=== PATIENT | female | born 2000 | race Caucasian/White ===

== ENCOUNTER 2022-04-26 08:59 | Outpatient (CLI) | payer BC, SELFPAY ==
--- NOTE | 2022-04-26 09:15 | CRLHL7_ITS ---
For Patients: As a result of the Cures Act, medical imaging exams and procedure reports are released immediately into your electronic medical record. You may view this report before your referring provider. If you have questions, please contact your health care provider. INDICATION: First trimester scan, establish dates. COMPARISON: None. TECHNIQUE: Real-time vargas-scale imaging of the pelvis was performed. FINDINGS: Sonographic imaging demonstrates a single living intrauterine gestation. The embryo demonstrates a regular cardiac rate measuring 168 beats per minute. The embryo`s crown-rump length measurement of 4.2 cm corresponds to a gestational age of 11 weeks 1 day with a sonographic due date of 11/14/2022. There is a normal-appearing yolk sac. There are no gross abnormalities noted within the embryo at this early state of development. The gestational sac has a normal appearance. There is no evidence of a perigestational hemorrhage. The amount of fluid within the sac appears appropriate for gestational age. The cervix is closed. The myometrium appears normal. The ovaries are not visualized. There are no suspicious fluid collections noted in the cul-de-sac. IMPRESSION: Normal first trimester OB ultrasound exam. Gestational age calculated at 11 weeks 1 day with a sonographic due date of 11/14/2022. Dictated by Rohith Dutton MD @ 04/26/2022 9:45:46 AM (Electronically Signed)
== END 2022-04-26 09:00 | disposition home or self-care (01) ==
PROVIDERS: Visit Provider Advanced Practice Midwife
DX: Z34.91 Encounter for supervision of normal pregnancy, unspecified, first trimester (principal); Z3A.08 8 weeks gestation of pregnancy
CPT/HCPCS: 76801; 86592; 86703; 86762; 86787; 86803; 86850; 86900; 86901; 87086; 87340

== ENCOUNTER 2022-06-25 13:49 | Outpatient (CLI) | payer BC, SELFPAY ==
--- NOTE | 2022-06-25 14:00 | CRLHL7_ITS ---
For Patients: As a result of the Century Cures Act, medical imaging exams and procedure reports are released immediately into your electronic medical record. You may view this report before your referring provider. If you have questions, please contact your health care provider. INDICATION: Evaluate anatomy. COMPARISON: None. TECHNIQUE: Real time vargas scale imaging of the fetus was performed. FINDINGS: Sonographic imaging demonstrates a single living intrauterine gestation. Fetus demonstrates a regular cardiac rate of 144 beats per minute. Fetus has a vertex orientation and longitudinal lie. The placenta lies anteriorly without evidence of placenta previa. Amniotic fluid volume appears normal. Single deepest vertical pocket: 4.0 cm. The cervix is closed and measures 3.9 cm in length. The composite ultrasound gestational age is calculated at 19 weeks 4 days with an estimated sonographic due date of November 15, 2022. The estimated weight is 298 grams which lies at the 3.92 percentile. The following biometric measurements were obtained: Biparietal diameter: 4.53 cm/19 weeks 5 days 36% Head circumference: 16.42 cm/19 weeks 1 day 10% Abdominal circumference: 14.45 cm/19 weeks 5 days 37% Femur length: 3.02 cm/19 weeks 2 days 21% The HC/AC ratio measures: 1.14 range (1.08-1.26) On anatomic survey, there is a normal appearance of the cerebral ventricles, cisterna magna and cerebellum. The nose, lips, and facial profile appear normal. The cervical, thoracic and lumbar spine are well visualized and appear normal. There is a normal four-chamber heart view and the left and right ventricular outflow tracts appear normal. diaphragm, stomach, kidneys and bladder appear normal. There is a normal three-vessel cord and cord insertion site. The four extremities appear normal. IMPRESSION: Normal OB ultrasound exam with concordance of clinical and sonographic dating. No intrinsic abnormalities noted on anatomic survey. Dictated by Caleb Olmos MD @ 06/25/2022 4:25:20 PM (Electronically Signed)
== END 2022-06-25 13:50 | disposition home or self-care (01) ==
PROVIDERS: Visit Provider Advanced Practice Midwife
DX: Z34.92 Encounter for supervision of normal pregnancy, unspecified, second trimester (principal); Z3A.19 19 weeks gestation of pregnancy
CPT/HCPCS: 76805

== ENCOUNTER 2022-08-21 15:02 | Outpatient (CLI) | payer BC, SELFPAY | END 2022-08-21 15:03 | disposition home or self-care (01) | LOC: NFLDREF 08-24 05:19 | PROVIDERS: Visit Provider Advanced Practice Midwife | DX: Z34.93 Encounter for supervision of normal pregnancy, unspecified, third trimester (principal); Z3A.28 28 weeks gestation of pregnancy | CPT/HCPCS: 86592 ==

== ENCOUNTER 2022-09-19 13:30 | Outpatient (RCR) | payer BC, SELFPAY | END 2022-09-19 14:36 | disposition home or self-care (01) | PROVIDERS: Visit Provider Advanced Practice Midwife | DX: Z34.90 Encounter for supervision of normal pregnancy, unspecified, unspecified trimester (principal); N81.89 Other female genital prolapse; N39.3 Stress incontinence (female) (male); R27.8 Other lack of coordination; M62.00 Separation of muscle (nontraumatic), unspecified site; Z51.89 Encounter for other specified aftercare | CPT/HCPCS: 97110; 97112; 97140; 97161; 97535 ==

== ENCOUNTER 2022-11-19 06:55 | Inpatient (IN) | payer BC, SELFPAY ==
[2022-11-19] VITALS (11 sets, daily range): BP systolic 113–138; BP diastolic 57–90; PULSE 72–149; RESP 17–18; TEMP 36.5–37.1; O2SAT 81–96; BMI 30.8
--- NOTE | 2022-11-19 07:56 | W.PM.LDBA ---
Subjective History of Present Illness Date Seen: 11/19/22 Narrative: Patient is being admitted to Labor and Delivery for IOL at 41.0 weeks. She is a 21 year old at weeks gestation. Her full history and physical was dictated by Prasanna Puga CNM on 10/25/22. Please see this for details. 1. Exercise induced Asthma Uses albuterol as needed, worsens w/ seasonal allergies 2.?Varicella equivocal Recommend vaccine pp OB - Problem Based A/P Additional Plan (1) Post term at 41 weeks gestation: Status: Acute (2) Encounter for induction of labor: Status: Acute Plan ASSESSMENT:? at 41.0 weeks gestation? GBS negative? Uncomplicated ? Postterm IOL? ?? PLAN:? 1. Reviewed risks and benefits of IOL with Pitocin vs Cytotec. Pt prefers Cytotec. Pitocin to follow if needed.? 2. Desires water . Consent signed. Hep C negative.? 3. Candidate for analgesia of choice. Planning unmedicated .? 4. Anticipate ? 5. IV per unit policy. 6. External monitoring per Cytotec policy Delivery/Labor/Induction Plan Plan: induction Induction method: per misoprostol protocol OB Result Labs Blood Type: A (+) positive GBS Status: negative OB Exam Physical Exam Vital signs: Pulse BP Pulse Ox 77 120/72 96 11/19/22 07:16 11/19/22 07:16 11/19/22 07:15 Detailed Labor and Delivery Exam Dilation (cm): 1 Effacement (%): 50 Cervix position: mid Consistency: firm Contraction Frequency: only feeling occasional cramping, denies contractions Tachysystole: No Fetus (Single) Station: -2 Amniotic Membrane Status: intact Heart Rate Baseline: 130 Monitor Accelerations: Present Monitor Decelerations: None [employer] Supervisor Variability: Moderate (6-25)
[2022-11-19] MEDS: miSOPROStoL 25 MCG/0.25 TABLET VAGINAL ×4 (08:37→18:46)
--- NOTE | 2022-11-19 20:54 | PM.OBPNL ---
Subjective Time Seen by Provider: 16:00 Date Seen: 11/19/22 Narrative: Gilma has received 2 doses of vaginal cytotec. She has been able to take a nap and has been doing position changes and labor warm up between resting. She is now feeling more cramping and tightening in her lower abdomen but is easily able to talk through them. She denies leaking fluids but did have some bloody show when wiping. She denies questions or concerns at this time. Plan to continue with cytotec induction followed by IV pitocin. Did not check her cervix at this time as there was not an indication. Objective Vital Signs: Last Vital Signs Temp 98.3 F 11/19/22 19:55 Pulse 76 11/19/22 19:55 Resp 17 11/19/22 18:51 BP 121/71 11/19/22 19:55 Pulse Ox 83 L 11/19/22 08:42 Contractions Monitor mode: External (palpate mild) Contraction Frequency: 2-4 Contraction pattern: Irregular (novi monitor. pt denies feeling cxt as frequently as they are picking up) Contraction intensity: Mild Assessment Assessment: induction ongoing Station: -2 Heart Rate Baseline: 130 Fdc Variability: Moderate (6-25) Monitor Accelerations: Present Monitor Decelerations: None Maternal Status: Ongoing induction. Plan Plan: Continue with cytotec induction followed by pitocin. IV placement not needed at this time but can place if condition changes. Monitoring per unit cytotec policy
[2022-11-19] MEDS: hydrOXYzine pamoate 25 MG CAPSULE 100 MG PO (22:16)
[2022-11-19] MEDS: MORPHINE 10 MG/ML inj IM (22:16)
[2022-11-20] VITALS (14 sets, daily range): BP systolic 105–132; BP diastolic 69–86; PULSE 73–105; RESP 16–18; TEMP 36.7–36.8; O2SAT 95–96
[2022-11-20] MEDS: miSOPROStoL 800 MCG/4 TABLET PR (00:45)
[2022-11-20] MEDS: OXYTOCIN 10 UNIT/ML INJ IM (00:48)
--- NOTE | 2022-11-20 01:14 | W.PM.OBVAGDE ---
OB Procedure Vag Delivery Mother Details Mother Details: The patient is a 21 year-old, 1, now Para 1, admitted on 11/19/22 at 41.1 Days gestation. Gilma received 4 doses of cytotec before keith regularly. The 5th dose was held due to frequency of contractions. She began to feel more uncomfortable with contractions and found found to be 7-8cm shortly after 2300. She was moved into the tub where she continued to labor and did get into the birthing tub when it was ready. She felt an urge to push shortly after my arrival and began spontaneously pushing. She pushed well to delivery. : 1 Para: 1 Weeks Gestation: 41.1 Admission Date: 11/19/22 Additional Details Amniotic Membrane Status: SROM Amniotic Membrane Rupture Date: 11/19/22 Amniotic Membrane Rupture Time: 23:17 Amniotic Membrane Fluid Description: Clear (terminal meconium) Analgesia/Anesthesia Type: None Waterbirth: Yes Pitcoin: Yes ( only) Intrapartal Events: Labor Induction and Precipitous Labor <3 Hrs Labor Onset: 23:17 Complete: 23:55 Pushin:55 Heart: heart tones during second stage were auscultated by doppler ranging from 120-130. Randall increases in the heart rate but no decreases. Delivery Details Delivery Date: 11/20/22 Delivery Time: 00:40 Route of delivery: Infant Gender: Female Viability: Alive; Heart Rate Present Position at Delivery: OA Delivery Details: Delivered over intact perineum via spontaneous vaginal delivery. was placed on maternal abdomen.? Cord was clamped and cut after a 30-60 second delay. No respiratory effort was noted and a slow heart rate was palpated by the umbilical cord. Baby was immediately brought to the warm where she began crying and improved. She was brought back to mom after a few minutes. Nose and mouth were bulb suctioned.? weight pending. 1 Minute Interval Total Score: 4 5 Minute Interval Total Score: 8 Additional Details Shoulder Dystocia: No Placenta Delivery Time: 01:00 Placental Delivery Description: Spontaneous Delivery repair: Vicryl and Chromic Procedure Done: Global Blood Loss: 400 Laceration: Perineal - 3rd Degree (3B laceration, evaluated and repaired by Dr. Forrester) Episiotomy Description: None Blood Loss Measurement Type: QBL Bakri Used: No Sponge/Need Count Correct: Yes Cord Vessel Description: 3 Vessels, Nuchal Cord, Tight and Delivered through Event Summary Status: Mother and infant were stable after delivery. Disposition: floor
--- NOTE | 2022-11-20 02:15 | P.OBCN_ITS ---
OB - CN: HPI Date of Consult Time Seen by Provider: 02:15 Date Seen: 11/20/22 Patient: [facility] Patient Consult date: 11/20/22 Requesting Physician: Jada Calero CNM Primary Care Provider: Not a Local Provider Consult Narrative Narrative: Gilma is a 21 year old s/p spontaneous vaginal delivery complicated by 3rd degree laceration on 11/20/2022. Third degree laceration Perineum inspected and a 3b laceration was noted. The patient was given a dose of 2g of cefoxitin, rectal exam performed to confirm tear and internal anal sphincter identified and intact with 50% avulsion of the external anal sphincter. Operators? gloves changed. Attention was then turned to the anal sphincter. Allis clamps were placed on the disrupted edges, and 2-0 vicryl used to reapproximate the sphincter in an interrupted fashion with two figure of eight stitches. Before these were tied down a rectal exam confirmed no retained sutures in the rectum and good sphincter tone with tightening of the sutures. Additional deep stitches were placed proximal to the sphincter to provide for a more substantial perineal body. The remainder of the tear was repaired as a typical 2nd degree laceration with a running 2-0 chromic stitch. There was no involvement of the anal mucosa. Following the repair, she was counseled on the procedure and precautions for return to care. Strong bowel regimen instructions reviewed. A rectal exam was performed at the beginning and end of repair and was without e/o suture through rectum or sphincter injury. Mom and baby doing well in recovery. History History 1 Elective abortions Para 0 Spontaneous abortions Hx # Term Pregnancies Ectopic pregnancies Hx # Pregnancies Multiple births Number of Living Children 0 Labs Blood type: A (+) positive GBS status: negative OB Labs: Lab Assessment Start: 11/19/22 07:05 Freq: ONCE Status: Complete Protocol: PC.OBGBS Activity Type Activity Date Activity User E-sign Co-sign Detail Recorded Client Recorded Date Recorded By Document 11/19/22 07:05 [facility] [id number] 11/19/22 07:37 [facility] 11/19/22 07:05 Lab Assessment GBS negative Previous with Invasive GBS No Does Patient Meet This Additional No Criteria Is Patient Allergic to Penicillin No Does Patient Have History of Severe No Reaction No Treatment Needed OK Maternal Blood Type A Maternal RH Factor Positive Evaluate Maternal Rubella Immune Status Immune Hepatitis B Surface Antigen Negative Maternal HIV Status Negative Maternal Syphillis (RPR) Status Negative Are Labs Available Yes PFSH PFSH Medical History (Updated 11/19/22 @ 14:55 by Jada Calero CNM) No significant past medical history Surgical History (Updated 04/26/22 @ 11:01 by Luna Puga CNM) History of third molar tooth extraction ?K08.409 - Partial loss of teeth, unspecified cause, unspecified class (ICD- 10) Family History (Updated 04/26/22 @ 11:03 by Luna Puga CNM) Father Alzheimers disease Depression High cholesterol Mother Asthma Depression Brother Asthma Paternal Grandfather Myocardial infarction Paternal Grandmother Diabetes Social History (Updated 10/25/22 @ 15:35 by Luna Puga CNM) Narrative: SOCIAL Education: Undergrad Work: Teaching, 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 Partner: Donald, Works at [employer] Lives with: Donald, Pets: none Abuse: Denies past/present Special Diet: Denies Ok with a blood transfusion: yes Culture or nondenominational beliefs: denies RISK FACTORS Exercise Times/wk: Cardio and weights 5x/week, 3-4x per week Depression/Anxiety: no hx Seat Belt Use: Routinely Smoking: Denies past/present Alcohol/day: Denies while , social drinking prior Caffeine: Coffee/tea 1 cup daily Drug Use: Denies past/present Chicken Pox: vaccinate MRSA: Denies What is your current living situation: I presently have a place to live Problems where you live: no known problems In the past 12 months, utilities in danger of being shut off: no In the past 12 mos, have been you worried that your food would run out before you had money to buy more?: never true In the past 12 mos, the food you bought just didn't last and you didn't have money to buy more?: never true Smoking Status: Never smoker How often does anyone, including family, friends and others, physically hurt you : How often does anyone, including family, friends and others, insult or talk down to you: How often does anyone, including family, friends and others, threaten you with harm: How often does anyone, including family, friends and others, scream or curse at you: Little interest or pleasure in doing things: not at all Feeling down, depressed, or hopeless: several days Meds Home Medications and Allergies Home Medications Medication Instructions Recorded Confirmed Type albuterol sulfate 90 mcg/actuation 2 inh inhalation Q4-6H PRN 04/26/22 11/19/22 History breath activated powder inhaler,sensor cyanocobalamin-liver extract tablet tab PO 04/26/22 11/07/22 History magnesium glycinate 120 mg PO QDAY 04/26/22 11/19/22 History prenat.vits,constantino,agk-rpus-obqpw 1 tab PO QDAY 04/26/22 11/19/22 History fexofenadine 60 mg tablet (Dee Dee 60 mg PO QDAY 09/05/22 11/19/22 History Allergy) Allergies Allergy/AdvReac Type Severity Reaction Status Date / Time minocycline Allergy Mild rash Verified 11/14/22 08:19 Penicillins Allergy Mild Unknown Verified 11/14/22 08:19 OB - H&P: Exam Physical Exam: Vital signs: Temp Pulse Resp BP Pulse Ox 98.3 F 76 17 121/71 83 L 11/19/22 19:55 11/19/22 19:55 11/19/22 18:51 11/19/22 19:55 11/19/22 08:42 OB - CN: A/P Assessment and Plan (1) Post term at 41 weeks gestation: Status: Acute (2) Encounter for induction of labor: Status: Acute
[2022-11-20] MEDS: cefOXitin 2 GM in 0.9 % SODIUM CHLORIDE Mini-bag 100 ML IVPB (02:19)
[2022-11-20] MEDS: LIDOCAINE 1 % PF 30 ML INJECTION (02:20)
[2022-11-20] MEDS: ACETAMINOPHEN 500 MG TABLET 1000 MG PO ×4 (02:42→20:25)
[2022-11-20] MEDS: IBUPROFEN 600 MG TABLET PO ×3 (06:20→18:54)
[2022-11-20] MEDS: DOCUSATE SODIUM 100 MG CAPSULE PO ×2 (08:46→20:25)
[2022-11-21] MEDS: IBUPROFEN 600 MG TABLET PO ×3 (01:18→18:44)
--- NOTE | 2022-11-21 07:37 | PM.OBPNVD1 ---
OB - PN:Subj Subjective Date Seen: 11/21/22 Patient comments OB post-: no complaints, pain well controlled, tolerating diet and flatus present [place] status: and doing well [place] feeding status: exclusively Narrative: Patient is a 21year old, G 1 now P 1? admitted on 11/19/22 at 41 Weeks, 0 Days gestation for postterm IOL.? She had an uncomplicated vaginal delivery.? She delivered a viable female .? She is breast feeding and reports things are well.? the patient has done well.? Her pain is well controlled with current medications.? She has no new complaints.? Vitals have been stable. She has remained afebrile. She is voiding without difficulty. She is passing gas and has not had a bowel movement. She is ambulating and denies any dizziness. OB - PN: Obj Exam Physical Exam: Vital signs: Temp Pulse Resp BP Pulse Ox O2 Del Method 98.0 F 81 16 120/79 95 Room Air 11/20/22 23:36 11/20/22 23:36 11/20/22 23:36 11/20/22 23:36 11/20/22 23:36 11/20/22 23:36 Narrative: GENERAL APPEARANCE:? normal affect, alert, no distress? MOOD:? appropriate? CHEST:? clear to auscultation and percussion? HEART:? regular rate and rhythm? ABDOMEN:? soft, non-tender the uterine fundus is 2 cm Below Umbilicus, Midline and is appropriate for the stage of recovery. ? PERINEUM:? mild edema of the perineum, there is a 3rd degree that is healing well.? EXTREMITIES:? normal and no edema? Patient has no complaints? No active bleeding?? Doing well? She is requesting discharge home.? OB - PN: A/P Vaginal Delivery Assessment and Plan (1) Post term at 41 weeks gestation: Status: Inactive (2) Encounter for induction of labor: Status: Inactive (3) care following vaginal delivery: Status: Acute (4) Lactating mother: Status: Acute Plan day: 1 Plan: routine care
[2022-11-21] MEDS: ACETAMINOPHEN 500 MG TABLET 1000 MG PO ×2 (07:48→20:29)
[2022-11-21 09:13] VITALS: BP 118/78; PULSE 94; RESP 18; TEMP 36.9; O2SAT 97
[2022-11-21] MEDS: DOCUSATE SODIUM 100 MG CAPSULE PO (09:55)
[2022-11-21 16:48] VITALS: BP 134/86; PULSE 90; RESP 18; TEMP 36.9; O2SAT 97
[2022-11-21 20:20] VITALS: BP 118/76; PULSE 90; RESP 16; TEMP 36.8; O2SAT 96
[2022-11-22 04:05] VITALS: BP 123/79; PULSE 86; RESP 16; TEMP 36.6; O2SAT 97
[2022-11-22] MEDS: ACETAMINOPHEN 500 MG TABLET 1000 MG PO ×2 (04:32→11:14)
[2022-11-22 07:25] LABS: Hemoglobin* 8.2 gm/dL (12.0-16.0)
[2022-11-22] MEDS: DOCUSATE SODIUM 100 MG CAPSULE PO (07:26)
[2022-11-22] MEDS: IBUPROFEN 600 MG TABLET PO (07:26)
[2022-11-22 07:28] VITALS: BP 122/79; PULSE 89; RESP 16; TEMP 36.6; O2SAT 97
--- NOTE | 2022-11-22 08:50 | P.DS_ITS ---
DS: Providers Provider Date Seen: 11/22/22 Date of admission: 11/19/22 06:55 Primary care physician: Not a Local Provider Admitting Clinician: Jada Calero CNM Attending Physician on discharge: Luna Puga CNM Date of Discharge: 11/22/22 DS: Diagnosis Discharge Diagnosis (1) care following vaginal delivery: Status: Acute (2) Lactating mother: Status: Acute (3) Third degree laceration of perineum, type 3b: Status: Acute Problem details: Strict bowel regimen. Recommended BID colace, with PRN Senna and/or Miralax for soft stools until 6 weeks. (4) Anemia due to acute blood loss: Status: Acute Problem details: Encourage iron rich foods, avoid iron supplementation at this time due to risk of constipation Exam Narrative: Exam Narrative: GENERAL APPEARANCE:? normal affect, alert, no distress MOOD:? appropriate CHEST:? clear to auscultation HEART:? regular rate and rhythm ABDOMEN:? soft, non-tender the uterine fundus is At Umbilicus, Midline and is appropriate for the stage of recovery. PERINEUM:? mild edema of the perineum, there is a Perineal Laceration,?3b, that is healing well. EXTREMITIES:? normal and no edema Const: Vital Signs, click to edit/add: Vital Signs - 24 hr 11/21/22 09:13 11/21/22 16:48 11/21/22 20:20 Temperature 98.4 F 98.4 F 98.2 F Pulse Rate [Pulse Oximeter] 94 90 90 Respiratory Rate 18 18 16 Blood Pressure [Le ft Arm] 118/78 134/86 118/76 Pulse Oximetry 97 97 96 Oxygen Delivery Me thod Room Air Room Air Room Air 11/22/22 04:05 11/22/22 07:28 Temperature 97.9 F 97.9 F Pulse Rate [Pulse Oximeter] 86 89 Respiratory Rate 16 16 Blood Pressure [Le ft Arm] 123/79 122/79 Pulse Oximetry 97 97 Oxygen Delivery Me thod Room Air Room Air OB - DS: Summary Hospital Course Hospital Course: Gilma is a 21 y.o. G 1 P 1 at 41 1/7 weeks gestation that was admitted to the Center on 11/19/22 for post-dates induction of labor. She had an uncomplicated vaginal delivery. She delivered a viable female . The patient feels well. ?The pain is well controlled with current medications. ?She has no new complaints. ?She is breast feeding and reports things are going well.? the patient has done well.? Vitals have been stable.? She has remained afebrile.? Has a good appetite, is tolerating a general diet. ?She is voiding without difficulty.? She is passing gas and has not had a bowel movement.? She is ambulating and denies any dizziness.? Has small amount of rubra lochia. ?She undecided with her plan for prevention. Peripartum Data delivery method: Vaginal (waterbirth) Laceration description: Perineal - 3rd Degree (3b repaired by Dr. Forrester) complications: none [place] Gender: Female Discharge Plan: Home Status at Discharge Functional status at discharge: independent ambulation Overall status at discharge: patient is progressing back to baseline Time Spent with Patient Time attestation: Total time spent providing and/or coordinating discharge services: Discharge Plan Discharge Disposition: Home, Self-Care Date of Admission: 11/19/22 06:55 Attending Provider on Discharge: Luna Puga Primary Care Provider: Provider,Not a Local Condition: Stable Anticipated Discharge Date/Time: 11/22/22 12:00 Discharge Medications: New acetaminophen 500 mg Tablet 1,000 mg PO Q6H PRNQty: 0 0RF docusate sodium 100 mg Capsule 100 mg PO BID Qty: 180 0RF ibuprofen 600 mg Tablet 600 mg PO Q6H PRNQty: 60 0RF pramoxine 1 % Foam 1 applic topical QID PRNQty: 0 0RF sennosides [senna] 8.6 mg tablet 8.6 mg PO DAILY Qty: 60 0RF Continued prenat.vits,constantino,gxf-brin-vegbx Tablet 1 tab PO QDAY cyanocobalamin-liver extract Tablet 1 tab PO DAILY magnesium glycinate 100 mg magnesium capsule 120 mg PO QDAY albuterol sulfate 90 mcg/actuation aero powdr breath act w/sensor 2 inh inhalation Q4-6H PRN Hold Instructions: per patient report fexofenadine [Dee Dee Allergy] 60 mg tablet 60 mg PO QDAY Patient Comments: as needed Discharge Orders: Discharge Order (Routine); Ordered 11/22/22 Ordered By: Luna R Edd Patient Education: OB Over the Counter Medication Information, OB Vaginal/Breast Feeding Additional Instructions: Discharge instructions were reviewed with the patient including signs and symptoms of infection and home going medications Nothing vaginally for 6 weeks: no tampons or intercourse Off Work or School for 6 weeks For 3rd degree healing, take colace twice daily, can also take senna and/or miralax for recommended soft stools until 6 weeks . 2-week visit: discuss feeding concerns, review control options and screen for anxiety/depression. 6-week visit for an annual exam. consultation services are available to all mothers and babies for the first year after delivery.? To make an appointment, please call [phone]. Activity Level: Activity as Tolerated Discharge Diet: Regular Follow Up Appointments: [facility] [Provider Group] Forms: [employer] Info Instructions
== END 2022-11-22 11:45 | disposition home or self-care (01) | DRG 560 ==
PROVIDERS: Admitting Provider Advanced Practice Midwife; Visit Provider Advanced Practice Midwife
DX: O48.0 Post-term pregnancy (principal); O70.22 Third degree perineal laceration during delivery, IIIb; O90.81 Anemia of the puerperium; D62 Acute posthemorrhagic anemia; Z37.0 Single live birth; Z3A.41 41 weeks gestation of pregnancy
CPT/HCPCS: 36415; 59200; 85018; A9270; J0694; J2001; J2270; J2590

== ENCOUNTER 2023-05-14 15:15 | Outpatient (RCR) | payer BC, SELFPAY | END 2023-09-11 23:59 | disposition home or self-care (01) | PROVIDERS: Visit Provider Advanced Practice Midwife | DX: Z39.2 Encounter for routine postpartum follow-up (principal); O70.22 Third degree perineal laceration during delivery, IIIb; M62.89 Other specified disorders of muscle; R10.2 Pelvic and perineal pain; O71.82 Other specified trauma to perineum and vulva; N94.10 Unspecified dyspareunia; N39.3 Stress incontinence (female) (male); K59.00 Constipation, unspecified; R27.8 Other lack of coordination; M62.838 Other muscle spasm; Z51.89 Encounter for other specified aftercare | CPT/HCPCS: 97110; 97140; 97162 ==

== ENCOUNTER 2023-12-16 08:30 | Outpatient (RCR) | payer BC, SELFPAY | END 2024-04-14 23:59 | disposition home or self-care (01) | PROVIDERS: Visit Provider Family Medicine | DX: N81.89 Other female genital prolapse (principal); M62.838 Other muscle spasm; M62.81 Muscle weakness (generalized); R27.8 Other lack of coordination; K59.00 Constipation, unspecified; N94.10 Unspecified dyspareunia; Z51.89 Encounter for other specified aftercare | CPT/HCPCS: 97110; 97140; 97535 ==

== ENCOUNTER 2024-05-27 06:59 | Outpatient (CLI) | payer BC, SELFPAY ==
--- NOTE | 2024-05-27 07:15 | CRLHL7_ITS ---
For Patients: As a result of the Cures Act, medical imaging exams and procedure reports are released immediately into your electronic medical record. You may view this report before your referring provider. If you have questions, please contact your health care provider. INDICATION: First trimester scan, establish dates. COMPARISON: None. TECHNIQUE: Real-time vargas-scale imaging of the pelvis was performed. FINDINGS: Sonographic imaging demonstrates a single living intrauterine gestation. The embryo demonstrates a regular cardiac rate measuring 163 beats per minute. The embryo`s crown-rump length measurement of 2.6 cm corresponds to a gestational age of 9 weeks 2 days with a sonographic due date of 12/28/2024. There is a normal-appearing yolk sac. There are no gross abnormalities noted within the embryo at this early state of development. The gestational sac has a normal appearance. There is no evidence of a perigestational hemorrhage. The amount of fluid within the sac appears appropriate for gestational age. The cervix is closed. The myometrium appears normal. The ovaries are of normal size. Corpus luteal cyst right ovary. There are no suspicious fluid collections noted in the cul-de-sac. IMPRESSION: Normal first trimester OB ultrasound exam. Gestational age calculated at 9 weeks 2 days with a sonographic due date of 12/28/2024. Dictated by Rohith Dutton MD @ 05/27/2024 10:05:38 AM (Electronically Signed)
== END 2024-05-27 07:00 | disposition home or self-care (01) ==
LOC: US 07:00
PROVIDERS: Visit Provider Advanced Practice Midwife
DX: Z34.91 Encounter for supervision of normal pregnancy, unspecified, first trimester (principal); Z3A.09 9 weeks gestation of pregnancy
CPT/HCPCS: 76817

== ENCOUNTER 2024-05-27 07:46 | Outpatient (CLI) | payer BC, SELFPAY | END 2024-05-27 07:47 | disposition home or self-care (01) | PROVIDERS: PCP Advanced Practice Midwife; Visit Provider Advanced Practice Midwife | DX: Z34.91 Encounter for supervision of normal pregnancy, unspecified, first trimester (principal); R82.90 Unspecified abnormal findings in urine; Z3A.09 9 weeks gestation of pregnancy | CPT/HCPCS: 83020; 83021; 83516; 85660; 86592; 86703; 86704; 86706; 86762; 86787; 86803; 86850; 86900; 86901; 87086; 87340 ==

== ENCOUNTER 2024-08-10 07:14 | Outpatient (CLI) | payer BC, SELFPAY | END 2024-08-10 07:15 | disposition home or self-care (01) | LOC: US 07:15 | PROVIDERS: Visit Provider Advanced Practice Midwife | DX: Z34.92 Encounter for supervision of normal pregnancy, unspecified, second trimester (principal); Z3A.20 20 weeks gestation of pregnancy | CPT/HCPCS: 76805 ==

== ENCOUNTER 2024-10-08 15:05 | Outpatient (CLI) | payer BC, SELFPAY | END 2024-10-08 15:06 | disposition home or self-care (01) | PROVIDERS: Visit Provider Advanced Practice Midwife | DX: Z34.93 Encounter for supervision of normal pregnancy, unspecified, third trimester (principal); Z3A.28 28 weeks gestation of pregnancy | CPT/HCPCS: 86592 ==

== ENCOUNTER 2024-11-30 08:35 | Outpatient (CLI) | payer BC, SELFPAY | END 2024-11-30 08:36 | disposition home or self-care (01) | LOC: NFLDREF 12-02 12:33 | PROVIDERS: Visit Provider Midwife | DX: Z34.83 Encounter for supervision of other normal pregnancy, third trimester (principal) | CPT/HCPCS: 87081; 87653 ==

== ENCOUNTER 2024-12-27 03:20 | Outpatient (CLI) | payer BC, SELFPAY ==
[2024-12-27 03:40] VITALS: BP 122/75; PULSE 97
--- NOTE | 2024-12-27 04:47 | PC.OBNST ---
NST Note NST Note Start: 12/27/24 03:24 Freq: ONCE Status: Active Protocol: Document 12/27/24 04:46 POT (Rec: 12/27/24 04:47 POT No Response) NST Note 2 Para (# of births) 1 EDC 12/26/24 Gestational Age In 40 Weeks & 1 Days Weeks & Days Patient Presented Decreased movement with Complaint(s) of Reactive Yes loli Ramirez Date 12/27/24 Reactive Yes [place] Date 12/27/24 OB NST charge Yes Complete NST Note Yes via Write Note The provider's electronic signature indicates the NST is reactive/appropriate for gestational age. *Note to provider: If an addendum is required, open the patient's chart and click on the note under the Nurse/Allied Health tab.
== END 2024-12-27 04:40 | disposition home or self-care (01) ==
LOC: OB OUT 03:20 → OB 03:20
PROVIDERS: Visit Provider Midwife
DX: O36.8130 Decreased fetal movements, third trimester, not applicable or unspecified (principal); Z3A.40 40 weeks gestation of pregnancy
CPT/HCPCS: 59025; G0463

== ENCOUNTER 2025-01-02 07:30 | Inpatient (IN) | payer BC, SELFPAY ==
[2025-01-02] VITALS (19 sets, daily range): BP systolic 102–134; BP diastolic 56–83; PULSE 72–95; RESP 16–19; TEMP 36.6–36.8; O2SAT 97–100; BMI 30.4
--- NOTE | 2025-01-02 08:41 | W.PM.LDBA ---
Subjective History of Present Illness Time Seen by Provider: 08:49 Date Seen: 01/02/25 Narrative: Patient is being admitted to Labor and Delivery for IOL for post dates. She is a 24 year old at 41+0 weeks gestation. Her full history and physical was dictated by this CNM on 12/10/2024. Please see this for details. Specific Issues/Plans : Donald Daughter Stephanie. It is a boy! H&P done on 12/10/24 per [facility] # Celiac disease. Diagnosed after last . # Hx 3rd degree laceration.-doing perineal massage # Hx precipitous delivery. Less then 2hr active labor after IOL with Cytotec. # Asthma. Rarely uses inhaler, worse with seasonal allergies. # Hx anemia Covid: Flu: Tdap: 10/19/24 RSV: N/A OB - Problem Based A/P Additional Plan (1) Supervision of other normal : Status: Acute Plan: at 41 weeks gestation? GBS negative? Uncomplicated ? Postterm IOL? Blood type:?A positive (2) Post-dates : Status: Acute Plan: Pitocin induction per protocol. Consider AROM once contractions are established, not indicated at this time. (3) Hx of maternal third degree perineal laceration, currently : Status: Acute Plan: Discussed strategies to mitigate perineal lacerations including perineal massage and use of coconut oil, coaching for controlled descent in second stage. Waterbirth may be beneficial, however the team is unlikely to be able to visualize signs of descent due to maternal positioning in the tub so our ability to advise on pushing is limited. Delivery/Labor/Induction Plan Plan: induction Induction method: per pitocin protocol OB Result Labs Blood Type: A (+) positive Rubella: immune RPR/VDLR: nonreactive GBS Status: negative HBsAG: negative OB Exam Physical Exam Narrative: Vitals per EMR? Psychiatric:? Alert and oriented x3? HEENT:? Normocephalic, atraumatic? Neck:? Supple without adenopathy or thyromegaly? Lungs:? Clear to auscultation bilaterally? Heart:? Regular rate and rhythm, no murmur, rub or gallop? Abdomen:? Soft, nontender, and gravid? Extremities:? No edema or erythema? ? Pelvic:? SVE: 3.5cm/30%/-3? Membrane status:? intact? presentation:? vertex confirmed by BSUS ? FHT: Moderate Variability.? Positive Accels.? No Decels. Baseline 135.? [place]:? Ctx ~Q3min but irregular? Detailed Labor and Delivery Exam Patient Gravid: yes Cervix position: mid Consistency: medium Cervical ripeness score: 4
[2025-01-02] MEDS: OXYTOCIN 30 unit/500 ML in NS 30 UNIT/500 ML BAG IVPB (09:41)
[2025-01-02] MEDS: LACTATED RINGERS 1000 ML 1,000 ML 124 ML IV (09:42)
--- NOTE | 2025-01-02 11:47 | P.OBPN_ITS ---
Subjective Time Seen by Provider: 11:47 Date Seen: 01/02/25 Narrative: Doing well, ambulating in room, at the bedside. Ordering lunch tray, states some contractions feel stronger but not consistently so yet. Objective Exam: VSS. NAD. SVE deferred as contractions remain inconsistently strong. Vital Signs: Last Vital Signs Temp 97.8 F 01/02/25 10:30 Pulse 78 01/02/25 10:30 Resp 16 01/02/25 10:30 BP 122/80 01/02/25 10:30 Pulse Ox 98 01/02/25 10:30 Contractions Monitor mode: External Contraction Frequency: 2-5 minutes Contraction pattern: Irregular Contraction intensity: Mild Pitocin Rate (mU/min): 1 Assessment Assessment: induction ongoing Status: Category l Heart Rate Baseline: 140 Internal Control Consultant Variability: Moderate (6-25) Monitor Accelerations: Present Monitor Decelerations: None Tracing Comments: Category 1 FHR. Maternal Status: 24yo at 41 weeks gestation ? uncomplicated. ? Labor type: induction? Reassuring with continuous EFM per protocol for pitocin IOL.?? ? Labor complicated by: none ? GBS negative Plan Plan: 1. Routine intrapartum cares as ordered. Continue with pitocin induction. ? 2. Monitoring per policy, continuous with pitocin. ? 3. Candidate for analgesia of choice. Pt desires waterbirth.? 4. Patient encouraged to reposition and ambulate to promote physiologic labor and . ? 5. Anticipate ???
--- NOTE | 2025-01-02 15:09 | PM.OBPNL ---
Subjective Time Seen by Provider: 15:09 Date Seen: 01/02/25 Narrative: Feeling well, completed [place] circuit and napped after lunch. No concerns. Contractions feel stronger. Objective Vital Signs: Last Vital Signs Temp 97.8 F 01/02/25 10:30 Pulse 73 01/02/25 15:08 Resp 16 01/02/25 11:59 BP 130/81 01/02/25 15:08 Pulse Ox 97 01/02/25 11:59 Pelvic Exam Dilation (cm): 5 Effacement (%): 30 Station: -2 Contractions Monitor mode: External Contraction pattern: Regular Contraction intensity: Moderate Pitocin Rate (mU/min): 7 Assessment Assessment: induction ongoing Station: -2 Status: Category l Heart Rate Baseline: 140 [place] Variability: Moderate (6-25) Monitor Accelerations: Present Monitor Decelerations: None Tracing Comments: Category 1 FHR. Labor Progress: 24yo at 41 weeks gestation ? uncomplicated.? Labor type: induced ? Continuous monitoring per protocol?? ? Labor complicated by: none ? GBS negative Plan Plan: 1. Routine intrapartum cares as ordered. ? 2. Monitoring per policy, continuous with pitocin. 3. Candidate for analgesia of choice. Comfort measures are adequate at this time.? 4. Patient encouraged to reposition and ambulate to promote physiologic labor and . ? 5. Anticipate ???
--- NOTE | 2025-01-02 17:24 | P.OBPN_ITS ---
Subjective Time Seen by Provider: 17:24 Date Seen: 01/02/25 Narrative: Gilma is coping well with contractions, has been very active in position changes and walking, on the ball. She is supported by her . Gilma is interested in amniotomy for labor augmentation. Objective Vital Signs: Last Vital Signs Temp 97.8 F 01/02/25 10:30 Pulse 77 01/02/25 17:13 Resp 16 01/02/25 11:59 BP 132/80 01/02/25 17:13 Pulse Ox 98 01/02/25 17:15 Pelvic Exam Dilation (cm): 6 Effacement (%): 50 Station: -2 Contractions Monitor mode: External Contraction Frequency: q2-4 minutes Contraction pattern: Regular Contraction intensity: Moderate Pitocin Rate (mU/min): 0 Assessment Assessment: induction ongoing Station: -2 Amniotic Membrane Status: AROM (FHR reassuring following amniotomy) Status: Category l Heart Rate Baseline: 135 Supervisor [employer] Variability: Moderate (6-25) Monitor Accelerations: Present Monitor Decelerations: None Maternal Status: 24yo at 41 weeks gestation ? uncomplicated. Labor type: induced ? Reassuring FHTs?? ? Labor complicated by: none ? GBS negative ? Plan Plan: 1. Routine intrapartum cares as ordered. Continue with induction, titrate pitocin as clinically indicated. ? 2. Monitoring per policy, continuous with pitocin. ? 3. Candidate for analgesia of choice. Pt plans waterbirth.? 4. Patient encouraged to reposition and ambulate to promote physiologic labor and . ? 5. Anticipate ???
--- NOTE | 2025-01-02 18:44 | PM.OBPNL ---
Subjective Time Seen by Provider: 18:44 Date Seen: 01/02/25 Narrative: Contractions feel stronger, Gilma has to stop and breathe through them; getting into the small tub for hydrotherapy. Objective Vital Signs: Last Vital Signs Temp 97.8 F 01/02/25 10:30 Pulse 77 01/02/25 17:13 Resp 16 01/02/25 18:00 BP 104/68 01/02/25 18:00 Pulse Ox 98 01/02/25 18:00 Pelvic Exam Comments: Exam deferred, pt ambulating. Contractions Monitor mode: External Contraction pattern: Irregular Contraction intensity: Moderate Pitocin Rate (mU/min): 0 Assessment Assessment: active labor Amniotic Membrane Status: AROM (FHR reassuring following amniotomy) Status: Category l Heart Rate Baseline: 140 [facility] Variability: Moderate (6-25) Monitor Accelerations: Present Monitor Decelerations: None Maternal Status: 24yo at 41 weeks gestation ? Labor type: induced ? Reassuring with EFM and intermittent auscultation per protocol.?? ? Labor complicated by: none ? GBS negative ? Plan Plan: 1. Routine intrapartum cares as ordered. Continue with current management ? 2. Monitoring per policy, continuous if on pitocin. ? 3. Candidate for analgesia of choice. Hydrotherapy now.? 4. Patient encouraged to reposition and ambulate to promote physiologic labor and . ? 5. Anticipate ???
--- NOTE | 2025-01-02 21:25 | W.PM.VAGDE_ITS ---
OB Procedure Vag Delivery Mother Details Mother Details: Patient was admitted for IOL for postdates and progressed normally with pitocin induction. AROM at 1709 with clear fluid. Patient was complete at 2047 and pushing at 2047. of a viable male at 2054 in hands and knees in the tub. Vertex delivered OA. Nuchal cord, delivered through. Body delivered easily and without incident. passed to mothers abdomen with a vigorous cry. Cord was clamped and cut at ~90 seconds. APGARS were 6 at one minute and 8 at five minutes respectively. Mouth was bulb suctioned. Intact placenta with a 3 vessel cord delivered spontaneously at 2099. Fundus firm. No lacerations. EBL 500 cc. Mother and baby stable and at this [facility]'s exit. Infant weight 3370g.? Labor Analgesia:? None? Pitocin:? Yes Labor onset:? 1709? Complete:? 2047? Pushing:? 2047? heart tones during second stage were reassuring per [place].? Blood loss: 500 mL.? Blood loss measurement type: EBL; some separation bleeding in tub and then placenta delivered in bed? Sponge and needles counts are correct.? : 2 Para: 1 Weeks Gestation: 41 Admission Date: 01/02/25 Additional Details Amniotic Membrane Status: AROM Amniotic Membrane Rupture Date: 01/02/25 Amniotic Membrane Rupture Time: 17:10 Amniotic Membrane Fluid Description: Clear Analgesia/Anesthesia Type: None Waterbirth: Yes Pitcoin: Yes Intrapartal Events: Labor Augmentation and Labor Induction Induction Method: per pitocin protocol Delivery augmentation: rupture of membranes Delivery Details Delivery Date: 01/02/25 Delivery Time: 20:55 Route of delivery: Infant Gender: Male Viability: Alive; Heart Rate Present Position at Delivery: OA Delivery Details: Delivered via spontaneous vaginal delivery. was placed on maternal abdomen.? Cord was clamped and cut after a 90 second delay. Nose and mouth were bulb suctioned.? weight 3370g. 1 Minute Interval Total Score: 6 5 Minute Interval Total Score: 8 Additional Details Shoulder Dystocia: No Placenta Delivery Time: 21:00 Placental Delivery Description: Spontaneous Procedure Done: Global Blood Loss: 500 Laceration: None Episiotomy Description: None Blood Loss Measurement Type: EBL [place] Used: No Sponge/Need Count Correct: Yes Cord Vessel Description: 3 Vessels, Nuchal Cord and Delivered through Event Summary Status: Mother and were stable after delivery. Disposition: floor
[2025-01-02] MEDS: IBUPROFEN 600 MG TABLET PO (23:35)
[2025-01-03 00:40] VITALS: BP 110/71; PULSE 80; RESP 18; TEMP 36.7; O2SAT 96
[2025-01-03 04:56] VITALS: BP 97/62; PULSE 77; RESP 18; TEMP 36.4; O2SAT 97
[2025-01-03 06:04] LABS: Hemoglobin* 10.9 gm/dL (12.0-16.0)
[2025-01-03] MEDS: IBUPROFEN 600 MG TABLET PO ×3 (07:40→21:18)
--- NOTE | 2025-01-03 08:12 | PM.OBPNVD1 ---
OB - PN:Subj Subjective Date Seen: 01/03/25 Patient comments OB post-: no complaints, pain well controlled, tolerating diet and flatus present [place] status: and doing well [place] feeding status: exclusively Narrative: Gilma feels well.? Her pain is well controlled with current medications.? She has no new complaints.? Urinary output is adequate and she is voiding without difficulty.? Has a good appetite, is tolerating a general diet, is passing flatus, and has not had a bowel movement.? Has small amount of rubra lochia with occasional quarter sized clots.? She is ambulating well.? OB - PN: Obj Exam Physical Exam: Vital signs: Temp Pulse Resp BP Pulse Ox O2 Del Method 97.6 F 77 18 97/62 97 Room Air 01/03/25 04:56 01/03/25 04:56 01/03/25 04:56 01/03/25 04:56 01/03/25 04:56 01/03/25 04:56 Narrative: GENERAL APPEARANCE:? normal affect, alert, no distress? MOOD:? appropriate? CHEST:? clear to auscultation and percussion? HEART:? regular rate and rhythm? BREASTS: soft, nontender, no erythema, nipples intact? ABDOMEN:? soft, non-tender the uterine fundus is U/1 and is appropriate for the stage of recovery. Incision.? PERINEUM:? mild edema of the perineum, there is a intact perineum that is healing well.? EXTREMITIES:? normal and no edema? OB - PN: Obj Data Labs Labs: Laboratory Results - last 24 hr 01/03/25 05:56 Hgb 10.9 L OB - PN: A/P Delivery Assessment and Plan (1) care following vaginal delivery: Status: Acute (2) Lactating mother: Status: Acute Plan day: 1 Plan: routine care Comments: Anticipate discharge home tomorrow.
[2025-01-03] MEDS: DOCUSATE SODIUM 100 MG CAPSULE PO (08:44)
[2025-01-03 08:55] VITALS: BP 112/73; PULSE 90; RESP 16; TEMP 36.6; O2SAT 97
[2025-01-03 11:25] VITALS: BP 108/74; PULSE 89; RESP 16; TEMP 36.6; O2SAT 97
[2025-01-03 16:03] VITALS: BP 119/78; PULSE 86; RESP 16; TEMP 36.7; O2SAT 96
[2025-01-03 21:00] VITALS: BP 111/73; PULSE 77; RESP 16; TEMP 36.7; O2SAT 97
[2025-01-04 05:00] VITALS: BP 103/65; PULSE 78; RESP 16; TEMP 36.7; O2SAT 96
[2025-01-04 07:45] VITALS: BP 122/77; PULSE 89; RESP 18; TEMP 37; O2SAT 97
[2025-01-04] MEDS: DOCUSATE SODIUM 100 MG CAPSULE PO (07:49)
--- NOTE | 2025-01-04 09:47 | PM.OBDSVD1 ---
DS: Providers Provider Date Seen: 01/04/25 Date of admission: 01/02/25 07:30 Primary care physician: Not a Local Provider Admitting Clinician: Namrata Liang CNM Attending Physician on discharge: Luna Puga CNM DS: Diagnosis Discharge Diagnosis (1) care following vaginal delivery: Status: Acute (2) Lactating mother: Status: Acute Exam Narrative: Exam Narrative: GENERAL APPEARANCE:? normal affect, alert, no distress MOOD:? appropriate CHEST:? clear to auscultation HEART:? regular rate and rhythm ABDOMEN:? soft, non-tender the uterine fundus is At Umbilicus, Midline and is appropriate for the stage of recovery. PERINEUM:? mild edema of the perineum. EXTREMITIES:? normal and no edema Const: Vital Signs, click to edit/add: Vital Signs - 24 hr 01/03/25 11:25 01/03/25 16:03 01/03/25 21:00 Temperature 97.8 F 98.1 F 98.1 F Pulse Rate [Pulse Oximeter] 89 86 77 Respiratory Rate 16 16 16 Blood Pressure [Le ft Arm] 108/74 119/78 111/73 Pulse Oximetry 97 96 97 Oxygen Delivery Me thod Room Air Room Air Room Air 01/04/25 05:00 01/04/25 07:45 Temperature 98.1 F 98.6 F Pulse Rate [Pulse Oximeter] 78 89 Respiratory Rate 16 18 Blood Pressure [Le ft Arm] 103/65 122/77 Pulse Oximetry 96 97 Oxygen Delivery Me thod Room Air Room Air Documenting provider has reviewed patient's vital signs: yes OB - DS: Summary Hospital Course Hospital Course: Gilma is a 24 y.o. G 2 P 2 who was admitted to L & D for IOL for post-dates. ?She had a NVD that was uncomplicated. The patient feels well. ?The pain is well controlled with current medications. ?She has no new complaints. ?She is breast feeding and reports things are going well. the patient has done well.? Vitals have been stable.? She has remained afebrile.? Has a good appetite, is tolerating a general diet. ?She is voiding without difficulty.? She is passing gas and has not had a bowel movement.? She is ambulating and denies any dizziness.? Has small amount of rubra lochia. Problems: none Discharge home with baby.? Follow up in 2 weeks and 6 weeks.? , may see if needed? Hgb 10.9. ?? For pain control of perineum, breast and pelvic pain, take 600 mg Ibuprofen every 6 hours as needed by mouth or 1000 mg acetaminophen (Tylenol) every 6 hours by mouth as needed. You can alternate these so you are taking something every 3 hours as needed. A heating pad can also be used for your abdomen or breasts. You may also take docusate sodium up to twice daily to soften your stools and help to prevent constipation. You may wean off of it when your stools return to normal.? Peripartum Data delivery method: Vaginal Laceration description: None complications: none [place] Gender: Male Discharge Plan: Home Status at Discharge Functional status at discharge: independent ambulation Overall status at discharge: patient is progressing back to baseline Time Spent with Patient Time attestation: Total time spent providing and/or coordinating discharge services: Time spent: Less than 30 minutes Discharge Plan Discharge Disposition: Home, Self-Care Date of Admission: 01/02/25 07:30 Attending Provider on Discharge: Luna Puga Primary Care Provider: Provider,Not a Local Condition: Stable Anticipated Discharge Date/Time: 01/04/25 12:00 Discharge Medications: New acetaminophen 500 mg Tablet 1,000 mg PO Q6H PRN (Reason: Moderate Pain) Qty: 0 0RF ibuprofen 600 mg Tablet 600 mg PO Q6H PRN (Reason: Moderate Pain) Qty: 0 0RF Continued prenat.vits,constantino,[id number] Tablet 1 tab PO QDAY magnesium glycinate 100 mg magnesium capsule 120 mg PO QDAY fexofenadine [Dee Dee Allergy] 60 mg tablet 60 mg PO QDAY PRN Patient Comments: as needed famotidine 10 mg tablet 10 mg PO QDAY docusate sodium 100 mg Capsule 100 mg PO BID Qty: 180 0RF Discharge Orders: Discharge Order (Routine); Ordered 01/04/25 Ordered By: Luna Puga Patient Education: OB Over the Counter Medication Information, OB Vaginal/Breast Feeding Additional Instructions: Discharge instructions were reviewed with the patient including signs and symptoms of infection and home going medications Nothing vaginally for 6 weeks: no tampons or intercourse Off Work or School for 6 weeks 2-week visit: discuss feeding concerns, review control options and screen for anxiety/depression. 6-week visit for an annual exam. consultation services are available to all mothers and babies for the first year after delivery.? To make an appointment, please call [phone]. Activity Level: Activity as Tolerated and No strenuous activity Discharge Diet: Regular Follow Up Appointments: [facility] [Provider Group] Forms: [employer] Info Instructions
== END 2025-01-04 11:15 | disposition home or self-care (01) | DRG 560 ==
PROVIDERS: Admitting Provider Advanced Practice Midwife; Visit Provider Advanced Practice Midwife
DX: O48.0 Post-term pregnancy (principal); K90.0 Celiac disease; Z3A.41 41 weeks gestation of pregnancy; Z37.0 Single live birth
CPT/HCPCS: 36415; 85018; 86592; A9270; J7120